=== PATIENT | female | born 1945 | race Two or more races ===

== ENCOUNTER 2018-04-08 20:29 | Emergency (ER) | payer SELFPAY ==
[2018-04-08] MEDS ORDERED: IPRATRPIUM/ALBUTEROL 0.5/2.5MG 3 ML NEBU. NEB ONE (21:00)
[2018-04-08] MEDS ORDERED: methylPREDNISolone SOD SUCC PF 125 MG/2 ML VIAL. IV ONE (21:00)
[2018-04-08] MEDS ORDERED: MORPHINE SULFATE 4 MG/ML VIAL. IV ONE (21:00)
[2018-04-08] MEDS ORDERED: MORPHINE SULFATE 4 MG/ML VIAL. ONE (23:29)
[2018-04-09 00:43] LABS: CALCIUM 8.9 mg/dL (8.5-10.1); CREATININE 0.9 mg/dL (0.6-1.0); GFR 61.7; POTASSIUM 3.8 mmol/L (3.5-5.1)
[2018-04-09] MEDS ORDERED: AZITHROMYCIN 250 MG TABLET. ONE (00:59)
[2018-04-09] MEDS ORDERED: predniSONE 10 MG TABLET ONE (00:59)
--- NOTE | 2018-04-09 01:06 | PHYS DOC ---
Adult General Chief Complaint Chief Complaint: CHEST PAIN HPI HPI Patient is a 73 year old female who presents with MSK chest pain and COPD. patient complains primarily of an excessive cough which has been present over the last week. She does have some chest and back pain that has become worse when she coughs. The pain started several days earlier. She was evaluated and diagnosed with COPD exacerbation. She does use inhalers at home. Review of Systems Review of Systems Constitutional: Denies fever or chills Eyes: Denies change in visual acuity, redness, or eye pain HENT: Denies nasal congestion or sore throat Respiratory: as documented above Cardiovascular: No additional information not addressed in HPI GI: Denies abdominal pain, nausea, vomiting, bloody stools or diarrhea : Denies dysuria or hematuria Musculoskeletal: Denies back pain or joint pain Integument: Denies rash or skin lesions Neurologic: Denies headache, focal weakness or sensory changes Endocrine: Denies polyuria or polydipsia All other systems were reviewed and found to be within normal limits, except as documented in this note. Current Medications Current Medications Current Medications Medications (Trade) Dose Ordered Sig/Laura Start Time Stop Time Status Last Admin Dose Admin Albuterol/ Ipratropium (Duoneb) 3 ml 1X ONCE 04/08/18 21:00 04/09/18 00:07 DC Azithromycin (Zithromax) 250 mg STK-MED ONCE 04/09/18 00:59 04/09/18 01:00 DC Methylprednisolone Sodium Succinate (SOLU-Medrol 125MG VIAL) 125 mg 1X ONCE 04/08/18 21:00 04/09/18 00:07 DC Morphine Sulfate (Morphine Sulfate) 4 mg STK-MED ONCE 04/08/18 23:29 04/09/18 00:41 DC Prednisone (Prednisone) 10 mg STK-MED ONCE 04/09/18 00:59 04/09/18 01:00 DC Allergies Allergies Allergies Coded Allergies Type Severity Reaction Last Updated Verified Unable to Assess 04/09/18 No Physical Exam Physical Exam Constitutional: Well developed, well nourished, no acute distress, non-toxic appearance HENT: Normocephalic, atraumatic, bilateral external ears normal, oropharynx moist Eyes: PERRLA, EOMI, conjunctiva normal, no discharge Neck: Normal range of motion, no tenderness Cardiovascular:Heart rate regular rhythm Lungs & Thorax: Bilateral breath sounds clear to auscultation Abdomen: Bowel sounds normal, soft, no tenderness Skin: Warm, dry, no erythema, no rash Back: No tenderness, no CVA tenderness Extremities: No tenderness, no cyanosis Neurologic: Alert and oriented X 3, normal motor function Psychologic: Affect normal, judgement normal Current Patient Data Lab Values Laboratory Tests Test 04/08/18 21:45 04/09/18 00:19 Sodium Level 136 mmol/L (136-145) Potassium Level 3.8 mmol/L (3.5-5.1) Chloride Level 103 mmol/L (98-107) Carbon Dioxide Level 26 mmol/L (21-32) Anion Gap 7 (6-14) Blood Urea Nitrogen 26 mg/dL (7-20) H Creatinine 0.9 mg/dL (0.6-1.0) Estimated GFR (Cockcroft-Gault) 61.7 Glucose Level 136 mg/dL (70-99) H Calcium Level 8.9 mg/dL (8.5-10.1) Troponin I Quantitative < 0.017 ng/mL (0.000-0.055) POC Troponin I 0.00 ng/ml (<0.08) Laboratory Tests 04/08/18 21:45 EKG EKG No STEMI Radiology/Procedures Radiology/Procedures No acute findings on CXR Course & Med Decision Making Course & Med Decision Making Pertinent Labs and Imaging studies reviewed. (See chart for details) Patient was evaluated in the ER for chest pain. She had an EKG that was nonacute. She had 2 troponins which were not elevated. She did have an x-ray without acute findings. Her pain was relieved with some morphine. Patient did have a persistent cough during the ED course. Ultimately, the patient was discharged home. She was placed on a azithromycin and prednisone and given some [place] for her pain. Consideration was given for CT angiography although the patient had a d-dimer that was normal range. Of note, the patient was in the emergency Department during some of down time procedure. Some of her documentation is scanned in to the record. Dragon Disclaimer Dragon Disclaimer This electronic medical record was generated, in whole or in part, using a voice recognition dictation system. Departure Departure Referrals: NON,STAFF (PCP) LELO VELASQUEZ DO Apr 09, 2018 01:06
[2018-04-09 02:25] LABS: BASO # 0.1 x10^3/uL (0.0-0.2); BASO % 1 % (0-3); EOS # 0.2 x10^3/uL (0.0-0.7); EOS % 3 % (0-3); HEMATOCRIT 39.2 % (36.0-47.0); HEMOGLOBIN 13.5 g/dL (12.0-15.5); LYMPH # 1.9 x10^3/uL (1.0-4.8); LYMPH % 22 % (24-48); MEAN CORPUSCULAR HEMOGLOBIN 29 pg (25-35); MEAN CORPUSCULAR HGB CONC 34 g/dL (31-37); MEAN CORPUSCULAR VOLUME 85 fL (79-100); MONO # 0.8 x10^3/uL (0.0-1.1); MONO % 9 % (0-9); NEUT # 5.7 x10^3uL (1.8-7.7); NEUT % 65 % (31-73); PLATELET COUNT 249 x10^3/uL (140-400); RED BLOOD COUNT 4.59 x10^6/uL (3.50-5.40); RED CELL DISTRIBUTION WIDTH 14.1 % (11.5-14.5); WHITE BLOOD COUNT 8.7 x10^3/uL (4.0-11.0)
[2018-04-09 02:26] LABS: D-DIMER 0.31 ug/mlFEU (0.00-0.50); PROTHROMBIN TIME PATIENT 17.6 SEC (11.7-14.0)
--- NOTE | 2018-04-09 07:18 | EKG ---
[facility] [address] [place] [address] Test Date: 2018-04-08 Test Time: 20:41:16 Pat Name: OLU STAPLES Department: Room: Gender: F Educational Manager: JULISSA : 1945 Requested By: LELO VELASQUEZ Order Number: [id number] Reading MD: Dallas Trevino MD Measurements Intervals Lewis Rate: 85 P: 41 WV: 134 QRS: -36 QRSD: 96 T: 35 QT: 366 QTc: 441 Interpretive Statements SINUS RHYTHM ABNORMAL LEFT AXIS DEVIATION R-S TRANSITION ZONE IN V LEADS DISPLACED TO THE RIGHT LEFT ANTERIOR FASCICULAR BLOCK Electronically Signed On 04-09-2018 11:30:54 CDT by Dallas Trevino MD
--- NOTE | 2018-04-09 08:14 | RAD ---
Portable chest, 04/08/2018: HISTORY: Shortness of breath, chest pain The heart size and pulmonary vascularity are normal. No pulmonary infiltrate is seen. There is no evidence of pleural fluid. IMPRESSION: No acute cardiopulmonary abnormality is detected. Electronically signed by: Cj Interiano MD (04/09/2018 8:12 AM) [facility]
== END 2018-04-09 01:10 | disposition home or self-care (01) ==
LOC: ER 20:29
DX: J44.9 Chronic obstructive pulmonary disease, unspecified (principal); R07.89 Other chest pain
CPT/HCPCS: 36415; 71045; 80048; 84484; 85025; 85379; 85610; 85730; 93005; 99285; J2270; J7512; Q0144